=== PATIENT | male | born 1965 | race Caucasian/White ===

== ENCOUNTER 2024-02-10 15:24 | Outpatient (CLI) | payer BC, SELFPAY ==
[2024-02-10 15:47] LABS: Basophils # 0.1 K/mm3 (0-0.2); Basophils % 1.3 % (0.1-2.0); Eosinophils # 0.3 K/mm3 (0.0-0.4); Eosinophils % 2.6 % (0.1-12.0); Hematocrit 50.1 % (42.0-52.0); Hemoglobin 17.1 g/dL (14.1-18.0); Lymphocytes # 3.8 K/mm3 (0.7-4.5); Lymphocytes % 37.3 % (10-50); Mean Corpuscular Hemoglobin 33.4 pg (27.0-31.2); Mean Corpuscular Volume 98.1 fl (80-94); Mean Platelet Volume 9.8 fl (7.4-10.4); Monocytes # 0.6 K/mm3 (0.1-1.0); Monocytes % 6.2 % (1.7-9.3); Neutrophils # 5.3 K/mm3 (1.8-7.8); Neutrophils % 52.6 % (37.0-80.0); Platelet Count 149 K/mm3 (142-424); Red Blood Count 5.11 M/mm3 (4.60-6.20)
[2024-02-10 16:41] LABS: Alanine Aminotransferase 104 U/L (12-78); Albumin Level 4.8 g/dl (3.5-5.0); Alkaline Phosphatase 69 U/L (38-126); Anion Gap 13.1 mEq/L (5-15); Aspartate Amino Transferase 71 U/L (17-59); Bilirubin,Total 0.8 mg/dl (0.2-1.3); Calcium 9.6 mg/dl (8.4-10.2); Carbon Dioxide 26 mmol/L (22.0-30.0); Chloride 105 mmol/L (98-107); Chol/HDL Ratio 6.3 (1-3.5); Cholesterol 270 mg/dl (140-200); Globulin 2.4 g/dL (1.3-3.2); Glucose 114 mg/dl (74-100); HDL Cholesterol 43 mg/dl (40-60); Potassium 4.1 mmoL/L (3.5-5.1); Sodium 140 mmol/L (136-145); Total Protein,Serum 7.2 g/dl (6.3-8.2); Triglycerides 353 mg/dl (30-150); VLDL Cholesterol 71 mg/dL (0-40)
[2024-02-10 16:53] LABS: Direct LDL Cholesterol 165.61 mg/dL (100-129)
[2024-02-10 17:00] LABS: 25-OH Vitamin D, Total 45.4 ng/mL (30-100)
[2024-02-10 17:12] LABS: Prostate Specific Ag Screen 1.1 ng/ml (0.0-4.0); Thyroid Stimulating Hormone 1.43 uIU/mL (0.465-4.68)
[2024-02-10 17:48] LABS: Estimated Glomerular Filt Rate 99 ml/min (>60); GFR (African American) 120 ML/MIN (>60)
[2024-02-10 17:49] LABS: Blood Urea Nitrogen 19 mg/dl (9-20); Iron 308 ug/dL (49-181)
[2024-02-10 17:58] LABS: Total Iron Binding Capacity 300 ug/dL (261-462)
[2024-02-10 18:07] LABS: Hemoglobin A1C 5.7 % (4.0-6.0)
[2024-02-10 18:24] LABS: Ferritin 428 ng/ml (17.9-464)
[2024-02-11 15:27] LABS: HIV Screen 4th Generation wRfx Non Reactive (Non Reactive); Hep A Ab, Total Positive (Negative); Hep B Core Ab, Total Negative (Negative); Hep B Surface Ab, Qual Non Reactive (.)
[2024-02-12 15:30] LABS: Peripheral Smear Review Scanned Result
[2024-02-15 08:36] LABS: Hepatitis B Surface Antigen Negative
[2024-02-15 08:37] LABS: Fibrosis Score 0.63; Fibrosis Stage F3; Hepatitis C Antibody Reactive; Necroinflammat Activity Score 0.57
[2024-02-15 08:38] LABS: Alpha 2-Macroglobulins, Qn 421; Apolipoprotein A-1 152; Bilirubin, Total 0.5; Haptoglobin 160; Necroinflammat Activity Grade A2
[2024-02-15 08:39] LABS: ALT (SGPT) P5P 74; GGT 59
== END 2024-02-10 23:59 ==
LOC: LAB 15:25
PROVIDERS: PCP Student in an Organized Health Care Education/Training Program; Visit Provider Internal Medicine Medical Oncology
DX: E83.119 Hemochromatosis, unspecified (principal); B19.20 Unspecified viral hepatitis C without hepatic coma; I10 Essential (primary) hypertension; E78.5 Hyperlipidemia, unspecified; Z12.5 Encounter for screening for malignant neoplasm of prostate; Z79.899 Other long term (current) drug therapy; Z11.4 Encounter for screening for human immunodeficiency virus [HIV]; E66.9 Obesity, unspecified; Z68.29 Body mass index [BMI] 29.0-29.9, adult; K74.60 Unspecified cirrhosis of liver; R74.8 Abnormal levels of other serum enzymes
CPT/HCPCS: 36415; 80053; 80061; 81596; 82306; 82728; 83036; 83540; 83550; 84443; 85025; 86703; 86704; 86706; 86708; 87340; 87380; 87522; 87902; G0103; G0432

== ENCOUNTER 2024-02-18 10:07 | Outpatient (CLI) | payer BC, SELFPAY ==
[2024-02-19 18:10] LABS: Transferrin 257 mg/dL (177-329)
== END 2024-02-18 23:59 ==
LOC: LAB 10:08
PROVIDERS: PCP Student in an Organized Health Care Education/Training Program; Visit Provider Internal Medicine Medical Oncology
DX: E83.119 Hemochromatosis, unspecified (principal)
CPT/HCPCS: 36415; 81256; 84466

== ENCOUNTER 2024-04-27 12:00 | Outpatient (CLI) | payer BC, SELFPAY ==
[2024-04-27 17:58] LABS: Basophils # 0.1 K/mm3 (0-0.2); Basophils % 1.2 % (0.1-2.0); Eosinophils # 0.2 K/mm3 (0.0-0.4); Eosinophils % 2.1 % (0.1-12.0); Hematocrit 54.6 % (42.0-52.0); Lymphocytes # 3.5 K/mm3 (0.7-4.5); Lymphocytes % 37.8 % (10-50); Mean Corpuscular HGB Conc 33.9 g/dL (31.8-35.4); Mean Corpuscular Hemoglobin 33.3 pg (27.0-31.2); Mean Corpuscular Volume 98.4 fl (80-94); Mean Platelet Volume 10.3 fl (7.4-10.4); Monocytes # 0.5 K/mm3 (0.1-1.0); Monocytes % 5.1 % (1.7-9.3); Neutrophils # 4.9 K/mm3 (1.8-7.8); Neutrophils % 53.8 % (37.0-80.0); Platelet Count 164 K/mm3 (142-424); Red Blood Count 5.55 M/mm3 (4.60-6.20); Red Cell Distribution Width 13.4 % (11.5-17.5); White Blood Count 9.2 K/mm3 (4.8-10.8)
[2024-04-27 18:27] LABS: Hemoglobin 18.5 g/dL (14.1-18.0)
[2024-04-27 18:33] LABS: Chol/HDL Ratio 4.8 (1-3.5); Cholesterol 257 mg/dl (140-200); HDL Cholesterol 53 mg/dl (40-60); Triglycerides 237 mg/dl (30-150); VLDL Cholesterol 47 mg/dL (0-40)
[2024-04-27 18:44] LABS: Direct LDL Cholesterol 163.79 mg/dL (100-129)
[2024-04-27 19:40] LABS: Vitamin B12 746 pg/mL (239-931)
[2024-04-27 19:49] LABS: Folate 7.84 ng/mL
[2024-04-27 19:51] LABS: Hemoglobin A1C 5.6 % (4.0-6.0)
== END 2024-04-27 23:59 | disposition home or self-care (01) ==
LOC: LAB.DROPOF 04-28 12:01
PROVIDERS: PCP Student in an Organized Health Care Education/Training Program; Visit Provider Student in an Organized Health Care Education/Training Program
DX: E83.119 Hemochromatosis, unspecified (principal); E78.2 Mixed hyperlipidemia; E53.8 Deficiency of other specified B group vitamins; Z13.1 Encounter for screening for diabetes mellitus; Z79.899 Other long term (current) drug therapy
CPT/HCPCS: 80061; 82607; 82746; 83036; 85025

== ENCOUNTER 2024-06-29 14:55 | Outpatient (POV) | payer BC, SELFPAY | END 2024-06-29 23:59 | disposition home or self-care (01) | LOC: SC 14:55 | PROVIDERS: Visit Provider Specialist/Technologist | DX: Z00.00 Encounter for general adult medical examination without abnormal findings (principal) ==

== ENCOUNTER 2024-08-16 12:08 | Outpatient (CLI) | payer BC, SELFPAY ==
[2024-08-16 12:36] LABS: Basophils % 0.3 % (0.1-2.0); Eosinophils # 0.1 K/mm3 (0.0-0.4); Eosinophils % 0.7 % (0.1-12.0); Hematocrit 48.4 % (42.0-52.0); Hemoglobin 16.4 g/dL (14.1-18.0); Lymphocytes # 3.1 K/mm3 (0.7-4.5); Lymphocytes % 23.8 % (10-50); Mean Corpuscular HGB Conc 33.9 g/dL (31.8-35.4); Mean Corpuscular Hemoglobin 33.9 pg (27.0-31.2); Mean Platelet Volume 8.9 fl (7.4-10.4); Monocytes # 0.8 K/mm3 (0.1-1.0); Monocytes % 5.9 % (1.7-9.3); Neutrophils % 69.2 % (37.0-80.0); Platelet Count 166 K/mm3 (142-424); Red Blood Count 4.84 M/mm3 (4.60-6.20); Red Cell Distribution Width 13.4 % (11.5-17.5)
[2024-08-16 12:45] LABS: INR 0.94 (0.9-1.1); Prothrombin Time 10.6 seconds (10.1-12.5)
[2024-08-16 13:38] LABS: Alanine Aminotransferase 49 U/L (12-78); Albumin Level 4.3 g/dl (3.5-5.0); Albumin/Globulin Ratio 1.5 (1.1-1.8); Alkaline Phosphatase 66 U/L (38-126); Aspartate Amino Transferase 41 U/L (17-59); Bilirubin,Total 0.7 mg/dl (0.2-1.3); Blood Urea Nitrogen 17 mg/dl (9-20); Calcium 9.4 mg/dl (8.4-10.2); Carbon Dioxide 27 mmol/L (22.0-30.0); Chloride 106 mmol/L (98-107); Estimated Glomerular Filt Rate 138 ml/min (>60); GFR (African American) 167 ML/MIN (>60); Globulin 2.9 g/dL (1.3-3.2); Glucose 99 mg/dl (74-100); Sodium 139 mmol/L (136-145); Total Protein,Serum 7.2 g/dl (6.3-8.2)
[2024-08-16 13:54] LABS: Iron 266 ug/dL (49-181)
[2024-08-16 14:03] LABS: Total Iron Binding Capacity 291 ug/dL (261-462)
[2024-08-16 14:30] LABS: Ferritin 345 ng/ml (17.9-464)
[2024-08-19 05:29] LABS: ALT (SGPT) P5P 40 IU/L (0-55); Alpha 2-Macroglobulins, Qn 378 mg/dL (110-276); Apolipoprotein A-1 137 mg/dL (101-178); Bilirubin, Total 0.4 mg/dL (0.0-1.2); Fibrosis Score 0.49 (0.00-0.21); GGT 34 IU/L (0-65); Haptoglobin 204 mg/dL (29-370); Necroinflammat Activity Grade A0-A1 (.); Necroinflammat Activity Score 0.27 (0.00-0.17)
== END 2024-08-16 23:59 | disposition home or self-care (01) ==
PROVIDERS: PCP Student in an Organized Health Care Education/Training Program; Visit Provider Internal Medicine Gastroenterology
DX: K74.60 Unspecified cirrhosis of liver (principal)
CPT/HCPCS: 36415; 80053; 81256; 81517; 82105; 82728; 83540; 83550; 85025; 85610

== ENCOUNTER 2024-08-18 08:40 | Outpatient (CLI) | payer BC, SELFPAY ==
--- NOTE | 2024-08-18 08:41 | US_ITS ---
FINAL REPORT CLINICAL HISTORY: Cirrhosis of liver COMPARISON: None FINDINGS: Sonographic images of the right upper quadrant were obtained. The pancreas is partially obscured. There is increased echogenicity of the liver with a coarsened echotexture. Small amount of sludge is noted in the dependent portion of the gallbladder. There is no evidence of biliary ductal dilatation.The common duct measures 4mm. Limited images of the right kidney are unremarkable. IMPRESSION: Findings consistent with cirrhosis or fatty infiltration of the liver. Small amount of gallbladder sludge. Reviewed, Interpreted and Dictated by Gentry Pandey MD Transcribed by Sarah Parks Authenticated and [facility]
== END 2024-08-18 23:59 | disposition home or self-care (01) ==
LOC: RAD 08:41
PROVIDERS: PCP Student in an Organized Health Care Education/Training Program; Visit Provider Internal Medicine Gastroenterology
DX: K74.60 Unspecified cirrhosis of liver (principal)
CPT/HCPCS: 76705

== ENCOUNTER 2025-06-05 13:08 | Outpatient (CLI) | payer BC, SELFPAY ==
[2025-06-05 14:04] LABS: Hematocrit 45.7 % (42.0-52.0); Hemoglobin 16.6 g/dL (14.1-18.0); Immature Granulocytes % 0.4 %; Mean Corpuscular HGB Conc 36.3 g/dL (31.8-35.4); Mean Corpuscular Hemoglobin 33.6 pg (27.0-31.2); Mean Corpuscular Volume 92.5 fl (80-94); Nucleated Red Blood Cells % 0 %; Platelet Count 151 K/mm3 (142-424); Red Blood Count 4.94 M/mm3 (4.60-6.20); Red Cell Distribution Width-SD 40.0 fL; White Blood Count 9.1 K/mm3 (4.8-10.8)
[2025-06-05 14:26] LABS: Albumin Level 4.7 g/dl (3.5-5.0); Albumin/Globulin Ratio 1.8 (1.1-1.8); Alkaline Phosphatase 68 U/L (38-126); Anion Gap 17.4 mEq/L (5-15); Bilirubin,Total 0.5 mg/dl (0.2-1.3); Blood Urea Nitrogen 14 mg/dl (9-20); Calcium 9.4 mg/dl (8.4-10.2); Carbon Dioxide 26 mmol/L (22.0-30.0); Chloride 100 mmol/L (98-107); Creatinine,Serum 0.70 mg/dl (0.66-1.25); Estimated Glomerular Filt Rate 115 ml/min (>60); GFR (African American) 140 ML/MIN (>60); Globulin 2.6 g/dL (1.3-3.2); Glucose 106 mg/dl (74-100); Iron 293 ug/dL (49-181); Potassium 4.4 mmoL/L (3.5-5.1); Sodium 139 mmol/L (136-145); Total Protein,Serum 7.3 g/dl (6.3-8.2)
[2025-06-05 14:27] LABS: Alanine Aminotransferase 59 U/L (12-78); Aspartate Amino Transferase 57 U/L (17-59)
[2025-06-05 15:11] LABS: Hemoglobin A1C 6.4 % (4.0-6.0)
[2025-06-05 15:33] LABS: Total Iron Binding Capacity 257 ug/dL (261-462)
[2025-06-05 16:00] LABS: Ferritin 553 ng/ml (17.9-464)
[2025-06-06 08:21] LABS: Cholesterol 267 mg/dl (140-200); HDL Cholesterol 35 mg/dl (40-60)
[2025-06-06 08:22] LABS: Triglycerides 495 mg/dl (30-150)
--- OUTSIDE RECORDS SUMMARY | 2025-06-06 10:46 | XMS_ITS | Referral Summary ---
Author Organization [facility] Address [address] [place] [address] Phone Care Team Providers Care Wharf Tally Clerk Name Role Phone Arsh Chowdary MD Primary Care Provider Unava ilable Allergies No known active allergies Medications LEXAPRO 20 MG OR TABS 1 TABLET DAILY Active GEMFIBROZIL 600 MG OR TABS 1 TABLET TWICE DAILY BEFORE MEALS Active LORAZEPAM None Entered Active Social History Tobacco Use Types Packs/Day Years Used Date Smoking Tobacco: Never Alcohol Use Standard Drinks/Week Comments Not Asked 0 (1 standard drink = 0.6 oz pur e alcohol) Sex and Gender Information Value Date Recorded Sex Assigned at Not on file Legal Sex Male 1:57 AM EDT Gender Identity Not on file Sexual Orientation Not on file Last Filed Vital Signs Vital Sign Reading Time Taken Comments Blood Pressure 138/96 10/25/2007 4:30 PM EST Pulse 86 10/25/2007 4:30 PM EST Temperature 36.8 C (98.2 F) 10/25/2007 4:30 PM EST Respiratory Rate - - Oxygen Saturation - - Inhaled Oxygen Concentration - - Weight 84.8 kg (187 lb) 10/25/2007 4:30 PM EST Height 182.9 cm (6') 10/25/2007 4:30 PM EST Body Mass Index 25.36 10/25/2007 4:30 PM EST Plan of Treatment Not on file Insurance [employer] NUNEZ ALL OTHERS NOT MEDICARE Care Teams Wharf Tally Clerk Relationship Specialty Start Date End Date Arsh Chowdary MD PCP - General 10/25/07
--- OUTSIDE RECORDS SUMMARY | 2025-06-06 10:46 | XMS_ITS | Clinical Summary ---
Author Organization [facility] Address [address] [address] Phone Care Team Providers Care Custodial Maintenance Worker Name Role Phone Arsh Chowdary MD Primary Care Provider Unava ilable Allergies No known active allergies Medications LEXAPRO 20 MG OR TABS 1 TABLET DAILY Active GEMFIBROZIL 600 MG OR TABS 1 TABLET TWICE DAILY BEFORE MEALS Active LORAZEPAM None Entered Active Family History Medical History Relation Name Comments Heart Disease Father Lung Disease Father Stroke Father Brain Aneurism [Other] Maternal Aunt Brain Aneurism [Other] Maternal Uncle Cancer Mother Relation Name Status Comments Brother 1 Alive Brother 2 Alive Father Alive Maternal Aunt Maternal Uncle Mother (Age 56) colon canc er Sister Alive Social History Tobacco Use Types Packs/Day Years [...] 10/25/2007 4:30 PM EST Plan of Treatment Health Maintenance Due Date Last Done Comments Hepatitis C Screening 1965 Colonoscopy 2010 PSA YEARLY 2015 Pneumococcal 50+ (1 of 1 - PCV) 2015 Shingrix (#1) 2015 DTap,Tdap,and Td (2 - Td or Tdap) 03/23/2023 013 Influenza Vaccine (Season Ended) 2025 RSV Vaccine (60+ or ) (1 - 1-dose 75+ series) 2040 HPV Aged Out No longer eligi ble based on patient's age to complete this topic Meningococcal conjugate tenisha nt 4 (MCV4) Aged Out No longer eligible b ased on patient's age to complete this topic RSV Immunization (<20 months) Aged Out No longer eligible based on patient's age to complete this topic Insurance SOB[employer] HOLLIS ZWOLLE ALL OTHERS NOT MEDICARE Care Teams Custodial Maintenance Worker Relationship Specialty Start Date End Date Arsh Chowdary MD PCP - General 10/25/07
--- OUTSIDE RECORDS SUMMARY | 2025-06-06 10:46 | XMS_ITS | Clinical Summary ---
Author Organization [facility] Address [address] [place] [address] Care Team Providers Care Hydraulic Rockbreaker Operator Name Role Phone Pcp, No Primary Care Provider [phone] Source Comments This information has been disclosed to you from confidential records protectedfrom disclosure by state law. You shall make no further disclosure of thisinformation without the specific, written, and informed release of theindividual to whom it pertains, or as otherwise permitted by law. A generalauthorization for the release of medical or other information is not sufficientfor the purposes of therelease of HIV test results or diagnoses. [id number] Allergies No known active allergies Medications No known medications Active Problems No known active problems Family History Medical History Relation Comments Melanoma Neg Hx Social History Tobacco Use Types Packs/Day Years Used Date Smoking Tobacco: Never Alcohol Use Standard Drinks/Week Comments No 0 (1 standard drink = 0.6 oz pur e alcohol) Sex and Gender Information Value Date Recorded Sex Assigned at Not on file Legal Sex Male 7:35 PM EST Gender Identity Not on file Sexual Orientation Not on file Plan of Treatment Not on file Insurance [employer] Care Teams Hydraulic Rockbreaker Operator Relationship Specialty Start Date End Date Pcp, No No Address PCP - General Pediatrics 09/23/15
--- OUTSIDE RECORDS SUMMARY | 2025-06-06 10:46 | XMS_ITS | Encounter Summary ---
Author Organization [facility] Address [address] [place] [address] Care Team Providers Care Performance Solutions Specialist Name Role Phone Arsh Chowdary MD Primary Care Provider [phone] Reason for Visit * Reason Comments Medication Refill Encounter Details Date Type Department Care Team (Late st Contact Info) Description 04/28/2011 Refill [facility] [address] [facility] [address] [place] [address] Arsh Chowdary MD [address] [place] [address] Medication Refill Social History Tobacco Use Types Packs/Day Years Used Date Smoking Tobacco: Never Alcohol Use Standard Drinks/Week Comments Not Asked 0 (1 standard drink = 0.6 oz pur e alcohol) Sex and Gender Information Value Date Recorded Sex Assigned at Not on file Legal Sex Male 8:17 PM EST Gender Identity Not on file Sexual Orientation Not on file documented as of this encounter Plan of Treatment Not on file documented as of this encounter Visit Diagnoses Not on filedocumented in this encounter Care Teams Performance Solutions Specialist Relationship Specialty Start Date End Date Arsh Chowdary MD PCP - General 07/28/17 08/20/21 documented as of this encounter
--- OUTSIDE RECORDS SUMMARY | 2025-06-06 10:46 | XMS_ITS | Encounter Summary ---
Author Organization [facility] Address [address] [place] [address] Phone Care Team Providers Care Restorative Coordinator Name Role Phone Arsh Chowdary MD Primary Care Provider Unava ilable Encounter Details Date Type Department Care Team (Late st Contact Info) Description 11/23/2007 [facility] [address] [place] [address] Arsh Chowdary MD Social History Tobacco Use Types Packs/Day Years [...] on file documented as of this encounter Procedures Procedure Name Priority Date/Time Associated Diagnosis Comments MRI/MRA HEAD Routine 10/22/2007 METABOLIC PANEL, COMPREHENSIVE-BLOOD Routine 10/18/2007 CBC W/ DIFF-BLOOD Routine 10/18/2007 documented in this encounter Results * MRI/MRA HEAD (10/22/2007) Anatomical Region Laterality Modality Other us Sachin Viramontes MD SPECIAL IMAGING STUDIES F inal Result * METABOLIC PANEL, COMPREHENSIVE-BLOOD (10/18/2007) us Arsh Chowdary MD LABORATORY Final Result [facility] [address] [place] [address] * CBC W/ DIFF-BLOOD (10/18/2007) WBC 5.0 - 10.0 [facility] RBC 4.40 - 5.90 Mil/ul [facility] HEMOGLOBIN 13.5 - 17.5 GM/DL [facility] HEMATOCRIT 40 - 53 [facility] MCV 82 - 99 [facility] MCH 27 - 32 pg [facility] MCHC 32 - 36 g/dl [facility] RDW 11.5 - 15.2 % [facility] PLATELET 140 - 375 K/mcL [facility] SEGS % [facility] LYMPHOCYTES % [facility] MONOCYTES [facility] EOSINOPHIL % [facility] BASOPHILS [facility] LARGE LYMPHS [facility] ABS SEGS [facility] ABS LYMPHS [facility] ABS MONOS [facility] ABS EOS [facility] ABS BASOS [facility] ABS LARGE LYMPHS [facility] Arsh Chowdary MD LABORATORY Final Result [facility] [address] [place] [address] documented in this encounter Visit Diagnoses Not on filedocumented in this encounter Care Teams Restorative Coordinator Relationship Specialty Start Date End Date Arsh Chowdary MD PCP - General 10/25/07 documented as of this encounter
--- OUTSIDE RECORDS SUMMARY | 2025-06-06 10:46 | XMS_ITS | Clinical Summary ---
Author Organization [facility] [employer] Address [address] [place] [address] Care Team Providers Care Customer Service Coordinator Name Role Phone Unavailable Primary Care Provider Unavailabl e Allergies Active Allergy Reactions Criticality Noted Date Comments Hydrocodone-Acetaminophen 11/29/2011 Causes agitation. Medications sucralfate (CARAFATE) 1 GM/10ML suspension Take 10 mLs by mouth 2 times daily (with meals) 500 mL 1 7 Active Additional Information Patient not taking.Reported on 01/16/2021 pantoprazole (PROTONIX) 40 MG tablet Take 80 mg by mouth 2 times daily 7 Active EPCLUSA 400-100 MG TABS Take by mouth daily 7 Active lisinopril-hydr oCHLOROthiazide (PRINZIDE;ZESTO RETIC) 10-12.5 MG per tablet Take 1 tablet by mouth daily 30 tablet 5 1 Active sildenafil (VIAGRA) 50 MG tablet Take 0.5-2 tablets by mouth daily as needed for Erectile Dysfunction 30 tablet 5 1 Active DULoxetine (CYMBALTA) 30 MG extended release capsule Take 1 capsule by mouth daily 30 capsule 5 Active Active Problems Problem Noted Date Diagnosed Date Thrombocytopenia 05/09/2019 Essential hypertension 05/05/2019 Other hemochromatosis 12/17/2017 Gastritis 12/17/2017 Bradford's esophagus 09/20/2017 Hypertriglyceridemia 09/20/2017 Chronic hepatitis C without hepatic coma 017 Family history of colon cancer 09/20/2017 Back pain 07/29/2012 Iron disorder 12/17/2011 GONZALEZ (nonalcoholic steatohepatitis) 12/17/2011 Anxiety 05/11/2011 Resolved Problems Problem Noted Date Diagnosed Date Resolved Date Elevated blood pressure reading 05/05/2019 05/05/2019 Abdominal pain, epigastric 07/28/2017 1 Hyperlipidemia 2011 09/20/2017 Hepatitis C 10/25/2011 09/20/2017 Immunizations Immunization Administration Dates Next Due Hep B, ENGERIX-B, (age 20y+), IM, 1mL 05/05/2019 Hepatitis A Adult (Vaqta) 05/05/2019 TDaP, ADACEL (age 10y-64y), BOOSTRIX (age 10y+), IM, 0.5mL 03/23/2013 Family History Medical History Relation Name Comments Cancer Father High Cholesterol Father Hypertension Father Stroke Father Cancer Mother Relation Name Status Comments Father Mother Social History Tobacco Use Types Packs/Day Years Used Date Smoking Tobacco: Never Smokeless Tobacco: Never Tobacco Cessation:Counseling Given: Yes Alcohol Use Standard Drinks/Week Comments No 0 (1 standard drink = 0.6 oz pur e alcohol) social PHQ-2 Answer Date Recorded PHQ-9 Total Score 0 01/16/2021 Sex and Gender Information Value Date Recorded Sex Assigned at Not on file Legal Sex Male 8:17 PM EST Gender Identity Not on file Sexual Orientation Not on file Last Filed Vital Signs Vital Sign Reading Time Taken Comments Blood Pressure 156/97 01/16/2021 3:29 PM EST Pulse 81 01/16/2021 3:23 PM EST Temperature 36.5 C (97.7 F) 01/16/2021 3:23 PM EST Respiratory Rate 15 08/03/2017 9:20 AM EDT Oxygen Saturation 96% 01/16/2021 3:23 PM EST Inhaled Oxygen Concentration - - Weight 90.8 kg (200 lb 4 oz) 01/16/2021 3:23 PM EST Height 179.1 cm (5' 10.5 ) 05/05/2019 1:24 PM ED T with shoes Body Mass Index 28.33 05/05/2019 1:24 PM EDT Plan of Treatment Not on file Insurance [id number] [place] [id number]
--- OUTSIDE RECORDS SUMMARY | 2025-06-06 10:46 | XMS_ITS | Encounter Summary ---
Author Organization [facility] [employer] Address [id number] [place] [address] Care Team Providers Care Regulatory Affairs Spec Name Role Phone Arsh Chowdary MD Primary Care Provider Reason for Visit * Reason Comments Medication Refill Encounter Details Date Type Department Care Team (Late st Contact Info) Description 03/22/2012 Refill [facility] [address] [facility] [address] [place] [address] Arsh Chowdary MD [address] [place] [address] Medication Refill Social History Tobacco Use Types Packs/Day Years Used Date Smoking Tobacco: Never Smokeless Tobacco: Never Alcohol Use Standard Drinks/Week Comments No 0 (1 standard drink = 0.6 oz pur e alcohol) social Sex and Gender Information Value Date Recorded Sex Assigned at Not on file Legal Sex Male 8:17 PM EST Gender Identity Not on file Sexual Orientation Not on file documented as of this encounter Plan of Treatment Not on file documented as of this encounter Visit Diagnoses Not on filedocumented in this encounter Care Teams Regulatory Affairs Spec Relationship Specialty Start Date End Date Arsh Chowdary MD PCP - General 07/28/17 08/20/21 documented as of this encounter
--- OUTSIDE RECORDS SUMMARY | 2025-06-06 10:46 | XMS_ITS | Encounter Summary ---
Author Organization [employer] [facility] [employer] [facility] Address [address] [email or web address] [address] Care Team Providers Care Retail And Promotions Coordinator Name Role Phone Arsh Chowdary MD Primary Care Provider [phone] Reason for Visit * Reason Comments Medication Refill Encounter Details Date Type Department Care Team (Late st Contact Info) Description 03/11/2012 Refill [facility] [address] [facility] [address] [place] [address] Arsh Chowdary MD [address] [place] [address] Medication Refill Social History Tobacco [...] on filedocumented in this encounter Care Teams Retail And Promotions Coordinator Relationship Specialty Start Date End Date Arsh Chowdary MD PCP - General 07/28/17 08/20/21 documented as of this encounter
== END 2025-06-05 23:59 | disposition home or self-care (01) ==
LOC: LAB.DROPOF 06-06 10:42
PROVIDERS: PCP Internal Medicine; Visit Provider Internal Medicine
DX: E78.2 Mixed hyperlipidemia (principal); E83.119 Hemochromatosis, unspecified; D53.9 Nutritional anemia, unspecified; Z00.00 Encounter for general adult medical examination without abnormal findings; E16.2 Hypoglycemia, unspecified; K74.60 Unspecified cirrhosis of liver; I10 Essential (primary) hypertension
CPT/HCPCS: 80053; 80061; 82728; 83036; 83540; 83550; 85025

== ENCOUNTER 2025-08-29 06:58 | Day surgery (SDC) | payer BC, SELFPAY ==
[2025-08-28 09:18] VITALS: BMI 27.1
--- NOTE | 2025-08-28 13:23 | EXP.HP ---
History of Present Illness *Admission Date: 08/29/25 *History of present illness: Mr. Choe is a 58-year-old gentleman who is here diagnostic EGD and screening colonoscopy. The patient does have a former history of hepatitis C and did undergo antiviral therapy and patient with known compensated cirrhosis and had sustained virologic remission. His lab work from January 2024 showed a reactive hepatitis C antibody and HCV viral quantitation showed no HCV detection. He did have a positive hepatitis A antibody. His prior hepatitis B surface antigen and surface antibody were negative. Liver chemistries have not recently been performed. His hemoglobin and hematocrit were 18.5 and 54.6 in March 2024. The patient quit alcohol at the age of 24. He is primarily here today because of a strong family history of colon cancer. His mother was found to have colon cancer at the age of 53 and from colon cancer at the age of 56. The patient's last colonoscopy in 2009 was normal. He does report some loose and soft bowel movements over the last 6 to 12 months. He reports no abdominal pain, gassiness or bloating. He reports no rectal bleeding or mucus. He has had no unintentional weight loss. The patient has a presumed history of hemochromatosis. He has had no recent hepatic ultrasound. The patient reports no heartburn or reflux. He has had no melena or hematochezia. He had been followed by gastroenterology in [facility] and did have a prior EGD in July 2017 showing short segment Bradford's esophagus and a single column of grade 1 esophageal varices. [facility] Disclaimer: The information contained in this section may have been updated after the patient was seen, as this information can be updated by other users. Medical History BPPV (benign paroxysmal positional vertigo) Bilateral serous otitis media Chronic eustachian tube dysfunction Hx of hepatitis C Hyperlipidemia Hypertension Surgical History History of surgical removal of ganglion cyst History of tonsillectomy History of nasal surgery Hx of bilateral hip replacements Family History Mother Colon cancer Brother Cancer Family/Other Cancer Social History (Updated 08/29/25 @ 07:36 by Leonora Hall CRNA) Smoking Status: Never smoker alcohol intake: never substance use type: unknown current occupational status: employed Travel in the last 8 weeks?: None Have you lived/traveled outside US in past 30 days?: No Contact w/someone who lives/traveled outside US past 30 days?: No Exposure to someone with infectious disease in past 14 days?: No Do you have a fever (greater than 100.4 F or 38 C)?: No Have you tested positive for COVID-19?: No Exposed to someone with COVID-19 in past 14 days?: No Do you have a sore throat?: No Do you have a cough?: No Do you have any weakness?: No Are you experiencing any nausea/vomitting?: No Do you have any diarrhea?: No Are you experiencing any unusual bleeding?: No Do you have any muscle aches/pain?: No Do you have any abdominal pain?: No Are you experiencing loss of taste or smell?: No Other Medical History Have you received the Pneumonia Vaccine: No Review of Systems Review of Systems Review of systems (narrative): Negative *Cardiovascular Comments: Negative *Gastrointestinal Comments: Negative *Genitourinary Comments: Negative *Musculoskeletal Comments: Negative *Neurologic Comments: Negative Meds Home Medications and Allergies Home Medications ?Medication ?Instructions ?Recorded ?Confirmed ?Type escitalopram oxalate 20 mg tablet 20 mg PO DAILY #90 tabs 06/05/25 07/26/25 Rx irbesartan 150 mg tablet 150 mg PO DAILY #30 tabs 07/26/25 07/26/25 Rx sodium,potassium,mag sulfates 17.5 See Rx Instructions PO .COMPLEX 08/15/25 Rx gram-3.13 gram-1.6 gram oral soln #354 mL (Suprep Bowel Prep Kit) New Prescriptions to Start Prescriptions: Allergies Allergy/AdvReac Type Severity Reaction Status Date / Time amlodipine AdvReac Unknown edema Verified 08/29/25 07:29 percocet AdvReac Irritable Uncoded 08/29/25 07:29 vicodin AdvReac Irritable Uncoded 08/29/25 07:29 Exam Data for Last 24 hours I & O for Last 24 hours: Intake & Output 08/25/25 08/26/25 08/27/25 08/28/25 23:59 23:59 23:59 23:59 Weight 200 lb *Routine HEENT Exam Head: Present normocephalic Eye: Present EOMI and PERRL ENT: Present mucous membranes moist *Routine Neck Exam Neck: Present supple *Routine Respiratory Exam Respiratory: Present CTA bilaterally *Routine Cardiovascular Exam Cardiovascular: Present RRR *Routine Abdominal Exam Abdominal: Present soft and normoactive bowel sounds; Absent tenderness *Routine Rectal Exam Rectal:: deferred *Routine Genitalia Exam Genitalia:: deferred *Routine Extremities Exam Extremities: Absent cyanosis, clubbing or edema *Routine Skin Exam Skin: Present warm; Absent rash *Routine Neurological Exam Neurological: Present alert and oriented X3 Assessment and Plan *Assessment and plan (1) Short-segment Bradford's esophagus: Status: Acute Category: Medical Code(s): K22.70 - Bradford's esophagus without dysplasia (2) Family history of colon cancer: Status: Acute Category: Medical Code(s): Z80.0 - Family history of malignant neoplasm of digestive organs (3) Hepatitis C virus infection cured after antiviral drug therapy: Status: Acute Category: Medical Code(s): Z86.19 - Personal history of other infectious and parasitic diseases (4) History of esophageal varices: Status: Acute Category: Medical Code(s): Z87.19 - Personal history of other diseases of the digestive system Plan A/P: 1. Screening for colon cancer/family history of colon cancer for colonoscopy and former history of short segment Bradford's esophagus and prior esophageal varices for upper endoscopy is the preprocedural diagnosis. The patient will be anesthetized/sedated using MAC sedation. The patient has been seen and examined. Cardiac and lung assessment prior to the examination is stable. Proceed with planned EGD and colonoscopy.
--- NOTE | 2025-08-29 07:05 | P.PCN_ITS ---
[facility] Procedure Note Date: 08/29/25 Time: 08:15 Procedure Note:: Upper Endoscopy Procedure Report: Esophagogastroduodenoscopy with cold biopsies Endoscopost: Raji Morales II, MD Referring Physician: Yadiel Jon DO Date of Procedure: August 29, 2025 Equipment: Olympus GIF-1100 standard upper endoscope Sedation: MAC sedation Indications: Mr. Choe is a 58-year-old gentleman who is here diagnostic EGD and screening colonoscopy. He is primarily here today because of a strong fami ly history of colon cancer. His mother was found to have colon cancer at the age of 53 and from colon cancer at the age of 56. The patient's last colonoscopy in 2009 was normal. He does report some loose and soft bowel movements over the last 6 to 12 months. The patient reports some fullness, early satiety and bloating. He also has intermittent right sided abdominal pain which he attributes to gallbladder. He reports no rectal bleeding or mucus. He has had no unintentional weight loss. The patient has a presumed history of hemochromatosis. He has had no recent hepatic ultrasound. The patient reports no heartburn or reflux. He has had no melena or hematochezia. He had been followed by gastroenterology in [facility] and did have a prior EGD in July 2017 showing short segment Bradford's esophagus and a single column of grade 1 esophageal varices. The patient does have a former history of hepatitis C and did undergo antiviral therapy and patient with known compensated cirrhosis and had sustained virologic remission. His lab work from January 2024 showed a reactive hepatitis C antibody and HCV viral quantitation showed no HCV detection. He did have a positive hepatitis A antibody. His prior hepatitis B surface antigen and surface antibody were negative. Liver chemistries have not recently been performed. His hemoglobin and hematocrit were 18.5 and 54.6 in March 2024. The patient quit alcohol at the age of 24. Procedure: Prior to the procedure, a history and physical exam was performed, and patient's medications and allergies were reviewed. The risks, benefits and alternatives of the sedation and procedure were discussed with the patient. All questions were answered and informed consent was obtained. The patient was brought to the procedure room. Patient identification and proposed procedure were verified by the physician and the nurse. The patient was placed in a left lateral decubitus position and the scope was passed under direct vision. Throughout the procedure, the patient's blood pressure, pulse, and oxygen saturations were monitored continuously. The upper GI endoscopy was accomplished without difficulty. The patient tolerated the procedure well. Findings: The scope was passed directly into the upper esophagus and advanced to the third portion of the duodenum. The post bulbar duodenum, ampulla and duodenal bulb were normal with normal mucosa and conniventes. A cold biopsy was taken from the second portion of the duodenum for the disaccharidase assay. The scope was withdrawn through a normal duodenal bulb and pylorus into the stomach. There was bile reflux with some linear reactive gastropathy of the antrum. The body and fundus of the stomach were normal. Upon retroflexion there was a small 1 to 2 cm hiatal hernia. Cold biopsies were taken from the antrum. There was no evidence of portal gastropathy or gastric fundic varices. The scope was then withdrawn into the esophagus. There were 2 tongues of salmon-colored mucosa distally consistent with very short segment Bradford's esophagus. NBI was utilized and directed biopsies were taken. There was no NBI evidence of dysplasia. There was no reflux esophagitis. There were very faint esophageal varices. The remainder of the esophageal mucosa was normal. Impression: 1. 2 tongues of salmon-colored distal esophageal mucosa consistent with very short segment Bradford's esophagus 2. Nonerosive GERD with small 1 to 2 cm hiatal hernia 3. Bile reflux with mild linear reactive gastropathy Plan: I will follow-up the biopsies and the disaccharidase assay. I would continue PPI therapy. I will proceed with screening colonoscopy.
--- NOTE | 2025-08-29 07:06 | HMH.PROCNOTE ---
[facility] Procedure Note Date: 08/29/25 Time: 08:35 Procedure Note:: Colonoscopy Procedure Report: Colonoscopy with cold snare polypectomy Endoscopist: Raji Morales II, MD Referring physician: Yadiel Jon DO Date of Procedure: August 29, 2025 Equipment: Olympus [id number] adult colonoscope Sedation: MAC sedation Indication: Mr. Choe is a 58-year-old gentleman who is here diagnostic EGD and screening colonoscopy. He is primarily here today because of a strong family history of colon cancer. His mother was found to have colon cancer at the age of 53 and from colon cancer at the age of 56. The patient's last colonoscopy in 2009 was normal. He does report some loose and soft bowel movements over the last 6 to 12 months. The patient reports some fullness, early satiety and bloating. He also has intermittent right sided abdominal pain which he attributes to gallbladder. He reports no rectal bleeding or mucus. He has had no unintentional weight loss. The patient has a presumed history of hemochromatosis. He has had no recent hepatic ultrasound. The patient reports no heartburn or reflux. He has had no melena or hematochezia. He had been followed by gastroenterology in [facility] and did have a prior EGD in July 2017 showing short segment Bradford's esophagus and a single column of grade 1 esophageal varices. The patient does have a former history of hepatitis C and did undergo antiviral therapy and patient with known compensated cirrhosis and had sustained virologic remission. His lab work from January 2024 showed a reactive hepatitis C antibody and HCV viral quantitation showed no HCV detection. He did have a positive hepatitis A antibody. His prior hepatitis B surface antigen and surface antibody were negative. Liver chemistries have not recently been performed. His hemoglobin and hematocrit were 18.5 and 54.6 in March 2024. The patient quit alcohol at the age of 24. Procedure: Prior to the procedure, a history and physical exam was performed, and patient's medications and allergies were reviewed. The risks, benefits and alternatives of the sedation and procedure were discussed with the patient. All questions were answered and informed consent was obtained. The patient was brought to the procedure room. Patient identification and proposed procedure were verified by the physician and the nurse. The patient was placed in a left lateral decubitus position and the scope was passed under direct vision. Throughout the procedure, the patient's blood pressure, pulse, and oxygen saturations were monitored continuously. The colonoscopy was accomplished without difficulty. The patient tolerated the procedure well. Findings: On digital rectal examination there was normal rectal tone. There were no external hemorrhoids. The prostate was 2+, smooth, soft, symmetric without nodules. The colonoscope was introduced through the anal canal to the rectum and advanced to the cecum. The ileocecal valve and appendiceal orifice were identified. The scope was advanced a short distance into the ileum which appeared grossly normal. The scope was then withdrawn into the colon. The cecum, ascending, transverse and descending colon were grossly normal. There was a diminutive 3 mm polyp in the sigmoid colon that was removed via cold snare polypectomy and tiny and not retrieved. The rectum was normal. Upon retroflexion within the rectum there were grade 1-2 internal hemorrhoids. The preparation was excellent throughout with Alva Preparation Score of 9. The cecal time was 12 minutes. Impression: 1. Diminutive 3 mm hyperplastic sigmoid polyp 2. Grade 1-2 internal hemorrhoids Plan: Based upon the patient's family history, I would continue screening/surveillance at a 5-year interval. I would encourage psyllium bulking fiber supplementation.
[2025-08-29] MEDS: LACTATED RINGERS 1000ML 1,000 ML 50 ML IV (07:19)
[2025-08-29 07:20] VITALS: BP 145/91; PULSE 68; RESP 16; O2SAT 100; BMI 59.8
--- NOTE | 2025-08-29 07:35 | P.PNANES_ITS ---
[facility] Disclaimer: The information contained in this section may have been updated after the patient was seen, as this information can be updated by other users. Medical History BPPV (benign paroxysmal positional vertigo) Bilateral serous otitis media Chronic eustachian tube dysfunction Hx of hepatitis C Hyperlipidemia Hypertension Surgical History History of surgical removal of ganglion cyst History of tonsillectomy History of nasal surgery Hx of bilateral hip replacements Family History Mother Colon cancer Brother Cancer Family/Other Cancer Social History Smoking Status: Never smoker alcohol intake: never substance use type: unknown current occupational status: employed Travel in the last 8 weeks?: None [facility] Anesthesia Checklist Patient Identification Patient Identification: Arm Band and Verbal (Name & ) Structural Data Admitted From: Home Planned Operative Procedure/s: Colonscopy Consent for Planned Operative Procedure(s) Verified: Yes Verified Documents: Surgical Consent and History and Physical NPO Status Verified Time NPO: 00:00 Additional verifications Anesthesia Reactions: No Previous Colonoscopy: Yes Airway Assessment Mallampati Score:: Class II Dentition: Good Dentition Neurological Assessment Level of Consciousness: Awake, Alert and Appropriate Hx Seizures: No Numbness or tingling in extremities: No Anesthesia Plan Anesthesia Risk discussed: Yes Anesthesia Plan: Verified ASA Class: II Anesthesia Type: MAC
[2025-08-29 08:38] VITALS: BP 104/68; PULSE 70; RESP 16; TEMP 36.2; O2SAT 93
[2025-08-29 08:48] VITALS: BP 107/71; PULSE 65; RESP 16; O2SAT 93
[2025-08-29 08:58] VITALS: BP 136/88; PULSE 63; RESP 18; O2SAT 96
[2025-08-29 09:08] VITALS: BP 132/77; PULSE 68; RESP 16; O2SAT 96
== END 2025-08-29 09:13 | disposition home or self-care (01) ==
PROVIDERS: PCP Internal Medicine; Visit Provider Internal Medicine Gastroenterology
PROC: 0DJ08ZZ Inspection of Upper Intestinal Tract, Via Natural or Artificial Opening Endoscopic (ICD-10-PCS; CPT 45378; principal; 2025-08-29 08:30)
DX: Z12.11 Encounter for screening for malignant neoplasm of colon (principal); K63.5 Polyp of colon; K64.0 First degree hemorrhoids; K64.1 Second degree hemorrhoids; K21.9 Gastro-esophageal reflux disease without esophagitis; K44.9 Diaphragmatic hernia without obstruction or gangrene; K31.89 Other diseases of stomach and duodenum; K74.60 Unspecified cirrhosis of liver; I10 Essential (primary) hypertension; E78.5 Hyperlipidemia, unspecified; K22.70 Barrett's esophagus without dysplasia; Z88.5 Allergy status to narcotic agent; Z80.0 Family history of malignant neoplasm of digestive organs; Z88.8 Allergy status to other drugs, medicaments and biological substances; Z86.19 Personal history of other infectious and parasitic diseases; Z87.19 Personal history of other diseases of the digestive system
CPT/HCPCS: 43239; 45385; 82657; J2003; J2704; J7120

== ENCOUNTER 2025-10-15 07:31 | Outpatient (CLI) | payer BC, SELFPAY ==
--- NOTE | 2025-10-15 07:30 | US_ITS ---
FINAL REPORT TECHNIQUE: Sonographic images of the abdomen were obtained in all four quadrants. CLINICAL HISTORY: RUQ/RLQ pain COMPARISON: None FINDINGS: LIVER: Changes of fatty infiltration of the liver are present, with focal sparing. No focal hepatic lesion or intrahepatic biliary dilatation. GALLBLADDER: There are several small gallbladder polyps, as well as at least one if not several gallstones present. No pericholecystic fluid collection or gallbladder wall thickening. The common duct measures 0.5 mm. This is within normal limits for age. PANCREAS: Unremarkable. RIGHT KIDNEY: 10.1 cm. No hydronephrosis, mass or stone. LEFT KIDNEY: 12 cm. No hydronephrosis, mass or stone. SPLEEN: 13 cm. No focal splenic lesion. AORTA/IVC: No abdominal aortic aneurysm. Visualized IVC within normal limits. OTHER: No ascites. IMPRESSION: Several polyps and stones are noted in the gallbladder without evidence of biliary ductal dilatation. Fatty infiltration of the liver is present with focal sparing. Reviewed, Interpreted and Dictated by Gentry Pandey MD Transcribed by Dora Matos Authenticated and [facility]
--- OUTSIDE RECORDS SUMMARY | 2025-10-15 07:33 | XMS_ITS | Clinical Summary ---
Author Organization [facility] Address [address] [place] [address] Phone Care Team Providers Care Resource Forester Name Role Phone Arsh Chowdary MD Primary [...] Td or Tdap) 03/23/2023 013 Influenza Vaccine (#1) 2025 RSV Vaccine (60+ or ) (1 [...] to complete this topic Insurance [facility] NOT MEDICARE Care Teams Resource Forester Relationship Specialty Start Date End Date Arsh Chowdary MD PCP - General 10/25/07
--- OUTSIDE RECORDS SUMMARY | 2025-10-15 07:33 | XMS_ITS | Clinical Summary ---
Author Organization [facility] Address [address] [place] [id number] Care Team Providers Care Street Photographer Name Role Phone Pcp, No Primary Care [...] therelease of HIV test results or diagnoses. [id number] Allergies No known active allergies Medications [...] on file Insurance [employer] Care Teams Street Photographer Relationship Specialty Start Date End Date Pcp, No No Address PCP - General Pediatrics 09/23/15
--- OUTSIDE RECORDS SUMMARY | 2025-10-15 07:34 | XMS_ITS | Encounter Summary ---
Author Organization [facility] Address [address], [address] [place] [address] Care Team Providers Care Trashman Name Role Phone Arsh Chowdary MD Primary Care Provider [phone] Reason for Visit * Reason Comments Medication Refill Encounter Details Date Type Department Care Team (Late st Contact Info) Description 03/11/2012 Refill [place] [id number] [facility] [address] [place] [id number] Arsh Chowdary MD [address] [place] [address] Medication Refill Social History Tobacco [...] on filedocumented in this encounter Care Teams Trashman Relationship Specialty Start Date End Date Arsh Chowdary MD PCP - General 07/28/17 08/20/21 documented as of this encounter
--- OUTSIDE RECORDS SUMMARY | 2025-10-15 07:34 | XMS_ITS | Encounter Summary ---
Author Organization [facility] Address [address], [address] [place] [address] Care Team Providers Care Brineyard Supervisor Name Role Phone Arsh Chowdary MD Primary Care Provider [phone] Reason for Visit * Reason Comments Medication Refill Encounter Details Date Type Department Care Team (Late st Contact Info) Description 03/22/2012 Refill [place] [id number] [facility] [address] [place] [id number] Arsh Chowdary MD [address] [place] [address] Medication Refill Social History Tobacco [...] on filedocumented in this encounter Care Teams Brineyard Supervisor Relationship Specialty Start Date End Date Arsh Chowdary MD PCP - General 07/28/17 08/20/21 documented as of this encounter
--- OUTSIDE RECORDS SUMMARY | 2025-10-15 07:34 | XMS_ITS | Encounter Summary ---
Author Organization [facility] Address [address] [place] [address] Phone Care Team Providers Care Swatch Clerk Name Role Phone Arsh Chowdary MD Primary Care Provider Unava ilable Encounter Details Date Type Department Care Team (Late st Contact Info) Description 11/23/2007 [facility]at [address] [place] [address] Arsh Chowdary MD Social History [...] us Arsh Chowdary MD LABORATORY Final Result [facility] [address] [place] [address] * CBC W/ DIFF-BLOOD (10/18/2007) WBC 5.0 [...] [facility] Arsh Chowdary MD LABORATORY Final Result [facility] [address] [place] [id number] documented in this encounter Visit Diagnoses Not on filedocumented in this encounter Care Teams Swatch Clerk Relationship Specialty Start Date End Date Arsh Chowdary MD PCP - General 10/25/07 documented as of this encounter
--- OUTSIDE RECORDS SUMMARY | 2025-10-15 07:34 | XMS_ITS | Encounter Summary ---
Author Organization [facility] Address [address], [address] [place] [address] Care Team Providers Care Assistant Wrestling Coach Name Role Phone Arsh Chowdary MD Primary Care Provider [phone] Reason for Visit * Reason Comments Medication Refill Encounter Details Date Type Department Care Team (Late st Contact Info) Description 04/28/2011 Refill [facility] [address] [facility] [address] [address] [place] [address] Arsh Chowdary MD [address] [place] [address] Medication Refill Social History Tobacco [...] on filedocumented in this encounter Care Teams Assistant Wrestling Coach Relationship Specialty Start Date End Date Arsh Chowdary MD PCP - General 07/28/17 08/20/21 documented as of this encounter
--- OUTSIDE RECORDS SUMMARY | 2025-10-15 07:34 | XMS_ITS | Clinical Summary ---
Author Organization [facility] Address [address], [address] [place] [address] Care Team Providers Care Oyster Opener Name Role Phone Unavailable Primary Care Provider [...] Administration Dates Next Due Hep B, ENGERIX-B, RECOMBIVAX-HB, (age 20y+), IM, 1mL 05/05/2019 Hepatitis A [...]
== END 2025-10-15 23:59 | disposition home or self-care (01) ==
LOC: RAD 07:31
PROVIDERS: PCP Internal Medicine; Visit Provider Internal Medicine
DX: K80.20 Calculus of gallbladder without cholecystitis without obstruction (principal); K76.0 Fatty (change of) liver, not elsewhere classified; R10.31 Right lower quadrant pain
CPT/HCPCS: 76700